=== PATIENT | female | born 1990 | race Caucasian/White ===

== ENCOUNTER 2019-06-07 03:02 | Inpatient (IN) | payer MEDICAID ==
[~2019-06-07] VITALS: Ht 154.9 cm; Wt 69.9 kg
[2019-06-07] MEDS ORDERED: ONDANSETRON HCL 4MG/2ML INJ IV STA (03:31)
[2019-06-07] MEDS ORDERED: MORPHINE SULFATE 4 MG/ML CPJ (NOT FOR IM USE) IV STA (03:31)
[2019-06-07] MEDS ORDERED: SODIUM CHLORIDE 0.9% 1,000 ML IV ONE (03:31)
[2019-06-07 03:55] LABS: CHLORIDE 107 mEq/L (98-107)
[2019-06-07 04:02] LABS: BASOPHILS % 0.6 % (0.0-2.0); EOSINOPHILS % 1.8 % (0.0-5.0); HEMATOCRIT. 36.7 % (36.0-48.0); HEMOGLOBIN. 12.3 g/dL (12.0-16.0); LYMPHOCYTES % 21.7 % (20.0-50.0); MEAN CORPUSCULAR HEMOGLOBIN 28.9 pg (28.0-32.0); MEAN CORPUSCULAR VOLUME 85.9 fL (81.0-99.0); MEAN PLATELET VOLUME 8.2 fl (7.4-10.4); MONOCYTES % 6.9 % (2.0-8.0); PLATELET 412 x1000/uL (130-400); RED BLOOD CELL COUNT 4.27 mill/uL (4.2-5.4); RED CELL DISTRIBUTION WIDTH 13.6 % (11.6-14.6)
[2019-06-07 04:33] LABS: CLARITY URINE CLEAR (CLEAR); COLOR URINE YELLOW (YELLOW); KETONES URINE NEGATIVE (NEGATIVE); LEUKOCYTE ESTERASE URINE 1+ (NEGATIVE); NITRITE URINE NEGATIVE (NEGATIVE); OCCULT BLOOD URINE NEGATIVE (NEGATIVE); PROTEIN URINE NEGATIVE (NEGATIVE); SPECIFIC GRAVITY URINE 1.018 (1.005-1.030); UROBILINOGEN URINE 0.2 E.U./dL (0.2-1.0)
[2019-06-07] MEDS ORDERED: IOHEXOL-300 100 ML BOTTLE ONE (06:22)
[2019-06-07] MEDS ORDERED: METR-167 MT (06:26)
[2019-06-07] MEDS ORDERED: CIPR-213 MT (06:26)
[2019-06-07] MEDS ORDERED: IPRATROPIUM/ALBUTEROL 0.5-3(2.5)MG/3ML NEB NEB PRN (08:00)
[2019-06-07] MEDS ORDERED: LORAZEPAM 2MG/ML CPJ IV PRN (08:00)
[2019-06-07] MEDS ORDERED: MAGNESIUM/ALUMINUM HYDROXIDE/SIMETHICONE 30ML UDC PO PRN (08:00)
[2019-06-07] MEDS ORDERED: CLONIDINE 0.1MG TABLET PO PRN (08:00)
[2019-06-07] MEDS ORDERED: ACETAMINOPHEN 325MG TABLET PO PRN (08:00)
[2019-06-07] MEDS ORDERED: NITROGLYCERIN 0.4MG TABLET SL SL PRN (08:00)
[2019-06-07] MEDS ORDERED: GUAIFENESIN 200MG/10ML SUGAR FREE UDC PO PRN (08:00)
[2019-06-07] MEDS ORDERED: DOCUSATE SODIUM 100MG CAPSULE PO PRN (08:00)
[2019-06-07 09:45] VITALS: BP 113/69
[2019-06-07 10:00] LABS: *AMPHETAMINES SCREEN URINE NEGATIVE (NEGATIVE); *BARBITURATES SCREEN URINE NEGATIVE (NEGATIVE); *COCAINE SCREEN URINE NEGATIVE (NEGATIVE); METHADONE URINE SCREEN NEGATIVE (NEGATIVE)
[2019-06-07 10:01] LABS: CANNABINOID URINE SCREEN NEGATIVE (NEGATIVE); PHENCYCLIDINE URINE SCREEN NEGATIVE (NEGATIVE)
[2019-06-07 10:13] LABS: *BENZODIAZEPINES SCREEN URINE PRESUMTIVE POSITIVE (NEGATIVE); OPIATES URINE SCREEN PRESUMTIVE POSITIVE (NEGATIVE)
[2019-06-07 10:30] VITALS: BP 113/69
[2019-06-07] MEDS: ONDANSETRON HCL 4MG/2ML INJ IV PRN ×2 (10:43→15:11)
[2019-06-07] MEDS: FAMOTIDINE 20MG TABLET PO SCH ×2 (11:39→17:32)
[2019-06-07] MEDS: KETOROLAC 15MG/ML VIAL IV PRN ×2 (11:40→17:45)
[2019-06-07 12:13] VITALS: BP 113/69
[2019-06-07] MEDS: CEFTRIAXONE 1 G PREMIX 50 ML IV SCH (14:53)
[2019-06-07 16:12] VITALS: BP 102/58
[2019-06-07 20:00] VITALS: BP 106/62
[2019-06-07] MEDS ORDERED: ZOLPIDEM TARTRATE 5MG TABLET PO PRN (21:00)
[2019-06-08] VITALS: BP 103/53
[2019-06-08 06:00] VITALS: BP 97/49
[2019-06-08] MEDS: FAMOTIDINE 20MG TABLET PO SCH ×2 (06:31→17:15)
[2019-06-08] MEDS: KETOROLAC 15MG/ML VIAL IV PRN (06:32)
[2019-06-08 08:00] VITALS: BP 105/51
[2019-06-08] MEDS: CEFTRIAXONE 1 G PREMIX 50 ML IV SCH (13:21)
[2019-06-08 16:00] VITALS: BP 109/66
[2019-06-08 17:12] VITALS: BP 109/66
== END 2019-06-08 18:27 | disposition home or self-care (01) | DRG 53 ==
LOC: ER 03:13 → 6WST 05:51 → ENRESERV 08:28
PROVIDERS: ADMIT Internal Medicine; ATTEND Internal Medicine
DX: G40.89 Other seizures (principal); E44.1 Mild protein-calorie malnutrition; E83.51 Hypocalcemia; N39.0 Urinary tract infection, site not specified; Z88.5 Allergy status to narcotic agent; Z68.29 Body mass index [BMI] 29.0-29.9, adult
CPT/HCPCS: 36415; 70551; 71045; 74177; 80061; 80305; 81003; 83036; 83605; 84484; 93005; 96361; 96374; 96375; 99291; J0696; J1885; J2060; J2270; J2405; J7030; Q9967